=== PATIENT | male | born 1975 | race Caucasian/White ===

== ENCOUNTER 2017-04-16 15:58 | Emergency (ER) | payer OTHER ==
[~2017-04-16] VITALS: Ht 170.2 cm; Wt 64.9 kg
[~2017-04-16 15:58] MED LIST: ADDERALL XR 2020 MG PO; ADDERALL XR 2525 MG PO; ATHENOL325 MG PO; BENTYL20 MG PO; CARAFATE100 MG/ML PO; CYANOCOBALAM1000 MCG PO; LEXAPRO10 MG PO; LEXAPRO20 MG PO; LOMOTIL TABLET1 EACH PO; MELATONIN3 MG PO; MELOXICAM7.5 MG PO; NAPROSYN500 MG PO; NEXIUM40 MG PO; PANTOPRAZOLE SO40 MG PO; PHENERGAN-CODE120 ML PO; PRILOSEC40 MG PO; PROMETHAZINE HC25 M1 PO; RANITIDINE HCL300 MG PO; REQUIP0.25 MG PO; SUCRALFATE1 GM/10 ML PO; TRAMADOL HCL50 MG PO; ULTRAM50 MG PO; VITAMIN B-6100 MG PO; XANAX1 MG PO; ZANTAC300 MG PO; ZOFRAN4 MG PO
[2017-04-16 16:43] LABS: HEMATOCRIT 41.7 % (38.0-50.0); MCH 31.1 PG (29.0-34.0); MCHC 36.2 G/DL (30.0-36.0); PLATELET COUNT 359 K/uL (156-360); RBC DIS.WIDTH-CV 11.7 % (11.8-14.6); RBC DIS.WIDTH-SD 36.6 % (39-53); RED BLOOD COUNT 4.85 M/uL (4.00-5.50); WHITE BLOOD COUNT 9.2 K/uL (4.1-10.2)
[2017-04-16 16:54] LABS: CHLORIDE 104 mEq/L (99-109); POTASSIUM 4.2 mEq/L (3.7-5.4); SODIUM 137 mEq/L (136-147)
[2017-04-16 16:56] LABS: GLUCOSE 137 mg/dL (70-99)
[2017-04-16 16:57] LABS: ANION GAP 12 MEQ/L (2-14)
[2017-04-16 16:58] LABS: TOTAL BILIRUBIN 0.2 mg/dL (0.0-1.0)
[2017-04-16 16:59] LABS: ALKALINE PHOSPHATASE 98 IU/L (3-129)
[2017-04-16 17:00] LABS: GFR ESTIMATE (CALCULATED) > 59 mL/min/
[2017-04-16 17:01] LABS: UREA NITROGEN (BUN) 16 mg/dL (9-23)
[2017-04-16 18:49] LABS: LIPASE 71 U/L (1.0-51.0)
[2017-04-16 19:23] LABS: ADD MIUA? NO; BILIRUBIN NEGATIVE; BLOOD NEGATIVE; COLOR STRAW ((YELLOW)); GLUCOSE (STRIP) NEGATIVE; KETONES NEGATIVE; LEUKOCYTES NEGATIVE; NITRITE NEGATIVE; PROTEIN (STRIP) NEGATIVE; SPECIFIC GRAVITY 1.025 (1.000-1.030); UCUL ADDED? NO; UROBILINOGEN 0.2 MG/DL (0.2-1.0)
[2017-04-16] MEDS ORDERED: ZOFRAN ODT4 MG PO (19:43)
[2017-04-16] MEDS ORDERED: PERCOCET 5/31 TABLET PO (19:43)
[2017-04-16] MEDS ORDERED: OMEPRAZOLE20 M2 PO (19:47)
[2017-04-16 19:56] VITALS: BP 107/75
== END 2017-04-16 19:57 | disposition home or self-care (01) ==
LOC: EME 15:58
DX: R10.13 Epigastric pain (principal); R11.2 Nausea with vomiting, unspecified; K21.9 Gastro-esophageal reflux disease without esophagitis; E11.9 Type 2 diabetes mellitus without complications; F41.9 Anxiety disorder, unspecified; Z85.6 Personal history of leukemia; Z87.891 Personal history of nicotine dependence
CPT/HCPCS: 74177; 80053; 81003; 83690; 85027; 99281; 99284; J1885; J2405; J3010; J7030